=== PATIENT | female | born 1965 | race Caucasian/White ===

== ENCOUNTER 2017-12-19 09:08 | Emergency (ER) | payer OTHER ==
[~2017-12-19] VITALS: Ht 157.5 cm; Wt 81.6 kg
[2017-12-19 09:40] VITALS: Ht 157.5 cm; Wt 81.6 kg
[2017-12-19 10:49] LABS: BASOPHIL % 0.4 % (0-2); PLATELET COUNT 359 x10^3mcL (130-400)
[2017-12-19 10:51] LABS: RED CELL DISTRIBUTION WIDTH 15.3 % (11.5-14.5); rbc morphology (normal/abnorm) ABNORMAL (NORMAL)
[2017-12-19 11:16] LABS: CALCIUM 8.7 mg/dL (8.5-10.1); CARBON DIOXIDE 30.4 mmol/L (21-32); CHLORIDE SERUM 109 mmol/L (98-107); CREATININE SERUM 0.7 mg/dL (0.6-1.0); GFR1 > 60 mL/min; GLUCOSE SERUM 91 mg/dL (74-106); POTASSIUM SERUM 4.2 mmol/L (3.5-5.1); SODIUM SERUM 144 mmol/L (136-145)
[2017-12-19 11:47] LABS: ALBUMIN 3.9 g/dL (3.4-5.0); ALKALINE PHOSPHATASE 90 U/L (46-116); ALT/SGPT 62 U/L (14-59); AST/SGOT 38 U/L (15-37); BILIRUBIN TOTAL 0.8 mg/dL (0.20-1.00)
[2017-12-19 11:48] LABS: LIPASE 183 IU/L (73-393)
[2017-12-19 15:58] VITALS: BP 133/64
== END 2017-12-19 15:58 | disposition home or self-care (01) ==
LOC: ED 09:08
PROVIDERS: Emergency Medicine
DX: R10.31 Right lower quadrant pain (principal)
CPT/HCPCS: J2270; Q0162

== ENCOUNTER 2018-06-28 20:16 | Inpatient (IN) | payer OTHER ==
[~2018-06-28] VITALS: Ht 157.5 cm; Wt 82.0 kg
[2018-06-28 21:01] LABS: BASOPHIL % 0.4 % (0-2); PLATELET COUNT 379 x10^3mcL (130-400)
[2018-06-28 21:03] LABS: RED CELL DISTRIBUTION WIDTH 15.6 % (11.5-14.5)
[2018-06-28 21:13] LABS: CALCIUM 8.8 mg/dL (8.5-10.1); CARBON DIOXIDE 27.7 mmol/L (21-32); CHLORIDE SERUM 107 mmol/L (98-107); CREATININE SERUM 0.7 mg/dL (0.6-1.0); GFR1 > 60 mL/min; GLUCOSE SERUM 122 mg/dL (74-106); SODIUM SERUM 143 mmol/L (136-145)
[2018-06-28 21:18] LABS: ALBUMIN 4.3 g/dL (3.4-5.0); ALKALINE PHOSPHATASE 240 U/L (46-116); ALT/SGPT 597 U/L (14-59); AST/SGOT 302 U/L (15-37); BILIRUBIN TOTAL 1.91 mg/dL (0.20-1.00); TOTAL PROTEIN, SERUM 8.2 g/dL (6.4-8.2)
[2018-06-28 21:40] LABS: LIPASE 9401 IU/L (73-393)
[2018-06-28] MEDS ORDERED: LEVOTHYROXINE0.05 M2 PO (22:48)
[2018-06-28 23:19] VITALS: BP 124/60
[2018-06-29 05:31] VITALS: BP 140/74
[2018-06-29 06:43] LABS: BASOPHIL % 0.4 % (0-2); PLATELET COUNT 339 x10^3mcL (130-400)
[2018-06-29 06:45] LABS: RED CELL DISTRIBUTION WIDTH 16.1 % (11.5-14.5)
[2018-06-29 06:50] LABS: ALBUMIN 3.7 g/dL (3.4-5.0); ALKALINE PHOSPHATASE 227 U/L (46-116); ALT/SGPT 568 U/L (14-59); AST/SGOT 359 U/L (15-37); BILIRUBIN TOTAL 2.74 mg/dL (0.20-1.00); CALCIUM 8.9 mg/dL (8.5-10.1); CARBON DIOXIDE 28.9 mmol/L (21-32); CHLORIDE SERUM 112 mmol/L (98-107); CREATININE SERUM 0.9 mg/dL (0.6-1.0); GFR1 > 60 mL/min; GLUCOSE SERUM 103 mg/dL (74-106); POTASSIUM SERUM 4.6 mmol/L (3.5-5.1); SODIUM SERUM 146 mmol/L (136-145); TOTAL PROTEIN, SERUM 7.1 g/dL (6.4-8.2)
[2018-06-29 07:43] LABS: LIPASE 17180 IU/L (73-393)
[2018-06-29 09:23] VITALS: BP 138/70
[2018-06-29 13:11] VITALS: BP 149/82
[2018-06-29 17:00] VITALS: BP 106/62
[2018-06-29 20:54] VITALS: BP 126/67
[2018-06-30 05:58] VITALS: BP 107/56
[2018-06-30 06:32] LABS: BASOPHIL % 0.5 % (0-2); PLATELET COUNT 320 x10^3mcL (130-400)
[2018-06-30 06:43] LABS: ALBUMIN 3.4 g/dL (3.4-5.0); BILIRUBIN DIRECT 0.55 mg/dL (0.0-0.2); BILIRUBIN TOTAL 1.8 mg/dL (0.20-1.00); RED CELL DISTRIBUTION WIDTH 16.1 % (11.5-14.5); TOTAL PROTEIN, SERUM 6.6 g/dL (6.4-8.2)
[2018-06-30 09:00] VITALS: BP 126/66
[2018-06-30 12:35] VITALS: BP 128/73
[2018-06-30 17:30] VITALS: BP 141/71
[2018-06-30 20:09] VITALS: BP 143/76
[2018-07-01 04:41] VITALS: BP 132/72
[2018-07-01 06:15] LABS: ALBUMIN 3.4 g/dL (3.4-5.0); ALKALINE PHOSPHATASE 207 U/L (46-116); ALT/SGPT 375 U/L (14-59); AST/SGOT 120 U/L (15-37); BILIRUBIN DIRECT 0.37 mg/dL (0.0-0.2); BILIRUBIN TOTAL 1.2 mg/dL (0.20-1.00); CALCIUM 8.7 mg/dL (8.5-10.1); CARBON DIOXIDE 24.6 mmol/L (21-32); CHLORIDE SERUM 105 mmol/L (98-107); CREATININE SERUM 0.7 mg/dL (0.6-1.0); GFR1 > 60 mL/min; GLUCOSE SERUM 96 mg/dL (74-106); POTASSIUM SERUM 3.4 mmol/L (3.5-5.1); SODIUM SERUM 140 mmol/L (136-145); TOTAL PROTEIN, SERUM 6.7 g/dL (6.4-8.2)
[2018-07-01 06:49] LABS: BASOPHIL % 0.4 % (0-2); PLATELET COUNT 324 x10^3mcL (130-400)
[2018-07-01 06:51] LABS: RED CELL DISTRIBUTION WIDTH 15.9 % (11.5-14.5)
[2018-07-01 08:15] VITALS: BP 133/64
[2018-07-01] MEDS ORDERED: NORCO1 TA2 PO (10:49)
[2018-07-01 12:48] VITALS: BP 125/63
[2018-07-01 13:34] VITALS: BP 125/63
== END 2018-07-01 17:00 | disposition home or self-care (01) | DRG 417 ==
LOC: ED 20:16 → DU 22:35
PROVIDERS: Emergency Medicine; Internal Medicine; Internal Medicine Pulmonary Disease; Surgery
PROC: 0FCC8ZZ Extirpation of Matter from Ampulla of Vater, Via Natural or Artificial Opening Endoscopic (ICD-10-PCS; 2018-06-29 10:00)
PROC: BF131ZZ Fluoroscopy of Gallbladder and Bile Ducts using Low Osmolar Contrast (ICD-10-PCS; 2018-06-29 10:00)
PROC: 0FT44ZZ Resection of Gallbladder, Percutaneous Endoscopic Approach (ICD-10-PCS; principal; 2018-06-30 11:00)
DX: K80.62 Calculus of gallbladder and bile duct with acute cholecystitis without obstruction (principal); K85.10 Biliary acute pancreatitis without necrosis or infection; E03.9 Hypothyroidism, unspecified; K58.9 Irritable bowel syndrome, unspecified; K31.7 Polyp of stomach and duodenum; Z79.899 Other long term (current) drug therapy
CPT/HCPCS: 43262; C1769; J0690; J1170; J1610; J1650; J2175; J2250; J2270; J2405; J2543; J3010; J3490; J7030; Q0092; Q9967